=== PATIENT | male | born 1985 | race Caucasian/White ===

== ENCOUNTER 2019-10-22 01:30 | Observation (INO) ==
[2019-10-22] MEDS ORDERED: Ondansetron 4 MG/2 ML VIAL IVP ONE (01:33)
[2019-10-22] MEDS ORDERED: 0.9 % Sodium Chloride 1,000 ML IVC ONE ×2 (01:33→05:13)
[2019-10-22 02:06] LABS: Bilirubin,Urine Negative (Negative); Blood,Urine Negative (Negative); Clarity,Urine Cloudy (Clear); Color,Urine Yellow (Yellow); Glucose,Urine (UA) Normal (Normal); Ketones,Urine Negative (Negative); Leukocyte Esterase,Urine Negative (Negative); Nitrite,Urine Negative (Negative); Protein,Urine 30 mg/dL (Neg-Trace); Specific Gravity,Urine 1.018 (1.010-1.025); Urobilinogen,Urine Normal (Normal)
[2019-10-22 02:09] LABS: Bacteria,Urine None Seen per hpf (None-Few); Hyaline Casts,Urine Few per lpf (None-Few); Squamous Epithelial Cell,Urine Many per lpf (None-Few); WBC,Urine 0-3 per hpf (0-3)
[2019-10-22 02:11] LABS: Basophils # 0.1 K/mcL (0.0-0.2); Basophils % 0.4 %; Eosinophils # 0.2 K/mcL (0.0-0.6); Eosinophils % 1.1 %; Hematocrit 49.8 % (37.5-50.1); Hemoglobin 18.3 g/dL (12.9-16.9); Immature Granulocytes % 0.3 % (0-4); Lymphocytes # 0.8 K/mcL (0.6-4.6); Lymphocytes % 5.2 %; Mean Corpuscular HGB Conc 36.7 g/dL (31.6-35.5); Mean Corpuscular Hemoglobin 34.6 pg (28.0-33.3); Mean Corpuscular Volume 94.1 fL (83.0-100.0); Mean Platelet Volume 8.9 fL (9.4-12.4); Monocytes # 0.5 K/mcL (0.0-1.3); Monocytes % 3.1 %; Neutrophils # 13.2 K/mcL (1.6-8.9); Platelet Count 370 K/mcL (140-400); Red Blood Count 5.29 M/mcL (4.19-5.50); Red Cell Distribution Width 12.2 % (11.5-14.5); Segmented Neutrophils % 89.9 %; White Blood Count 14.7 K/mcL (4.3-11.1)
[2019-10-22 02:26] LABS: BUN/Creatinine Ratio 9 (6-26); Blood Urea Nitrogen 12 mg/dL (6-20); Calcium 10.4 mg/dL (8.6-10.3); Carbon Dioxide 16 mEq/L (23-29); Chloride 105 mEq/L (98-107); Glucose 95 mg/dL (70-105); Osmolality,Calculated 292 (280-300); Potassium 2.9 mEq/L (3.5-5.1); Sodium 141 mEq/L (136-145); eGFR For African Americans > 60 (> 60); eGFR For Non-African Americans 58 (> 60)
[2019-10-22] MEDS ORDERED: *HR* HYDROmorphone (PF) 1 MG/ML SYRINGE IVP ONE (03:50)
[2019-10-22] MEDS ORDERED: Promethazine 25 MG in 0.9 % Sodium Chloride 50 ML IVPB ONE (04:00)
[2019-10-22] MEDS ORDERED: 0.9 % Sodium Chloride 1,000 ML ONE (05:09)
[2019-10-22] MEDS ORDERED: Naloxone 0.4 MG/ML INJ IVP PRN (08:12)
[2019-10-22] MEDS ORDERED: Ondansetron 4 MG/2 ML VIAL IVP PRN (08:12)
[2019-10-22] MEDS ORDERED: Sodium Bicarbonate 50 MEQ in D5% in Water 1,000 ML IVC ONE (08:15)
[2019-10-22] MEDS ORDERED: Potassium Chloride 40 MEQ, Lidocaine 1% 2 ML in 0.9 % Sodium Chloride 500 ML IVPB ONE (08:19)
[2019-10-22 08:38] LABS: Alanine Aminotransferase 10 Units/L (7-52); Albumin 3.9 g/dL (3.5-5.7); Albumin/Globulin Ratio 1.8 (1.1-2.2); Alkaline Phosphatase 48 Units/L (34-104); Aspartate Amino Transferase 10 Units/L (13-39); Bilirubin,Direct 0.3 mg/dL (0.0-0.2); Bilirubin,Indirect 0.8 mg/dL (0.0-1.0); Bilirubin,Total 1.1 mg/dL (0.3-1.0); Globulin 2.2 g/dL (2.4-3.5); Salicylate < 2.5 mg/dL (15.0-30.0); Total Protein 6.1 g/dL (6.4-8.9)
[2019-10-22] MEDS: Ringers Solution, Lactated 1,000 ML IVC SCH ×2 (09:03→21:39)
[2019-10-22] MEDS ORDERED: Albuterol 2.5 MG/3 ML NEBULIZER IH PRN (09:59)
[2019-10-22 11:10] LABS: ABG Base Excess -1 mEq/L (-2 to 3); ABG HCO3 24 mEq/L (21-27); ABG Oxygen Saturation 97 % (95-98); ABG PCO2 39 mmHg (35-45); ABG PH 7.39 pH Units (7.32-7.45); ABG PO2 86 mmHg (85-104); ABG TCO2 25 mEq/L (20-26)
[2019-10-22] MEDS ORDERED: Ipratropium/Albuterol Neb 3 ML ONE (11:22)
[2019-10-22] MEDS: Ipratropium/Albuterol Neb 3 ML IH PRN ×2 (11:24→18:45)
[2019-10-22 11:38] LABS: BUN/Creatinine Ratio 10 (6-26); Blood Urea Nitrogen 13 mg/dL (6-20); Calcium 8.3 mg/dL (8.6-10.3); Carbon Dioxide 23 mEq/L (23-29); Chloride 108 mEq/L (98-107); Glucose 81 mg/dL (70-105); Osmolality,Calculated 289 (280-300); Potassium 3.9 mEq/L (3.5-5.1); Sodium 140 mEq/L (136-145); eGFR For African Americans > 60 (> 60); eGFR For Non-African Americans > 60 (> 60)
[2019-10-22 12:31] LABS: Adenovirus F 40/41 PCR Not detected (Not detect); Astrovirus PCR Not detected (Not detect); C.difficile Toxin A/B Gene PCR Not detected (Not detect); Campylobacter by PCR Not detected (Not detect); Cryptosporidium by PCR Not detected (Not detect); Cyclospora cayetanensis PCR Not detected (Not detect); E. coli O157 by PCR Not detected (Not detect); Entamoeba histolytica PCR Not detected (Not detect); Enteroaggregative E.coli(EAEC) Not detected (Not detect); Enteropathogenic E.coli(EPEC) Not detected (Not detect); Enterotoxigenic E.coli (ETEC) Not detected (Not detect); Giardia lamblia PCR Not detected (Not detect); Norovirus GI/GII PCR DETECTED (Not detect); Plesiomonas shigelloides PCR Not detected (Not detect); Rotavirus A PCR Not detected (Not detect); Salmonella PCR Not detected (Not detect); Sapovirus PCR Not detected (Not detect); Shig/EnteroinvasiveE coli EIEC Not detected (Not detect); Shigalike tox-prod E coli STEC Not detected (Not detect); Vibrio PCR Not detected (Not detect); Vibrio cholerae PCR Not detected (Not detect); Yersinia enterocolitica PCR Not detected (Not detect)
[2019-10-22 14:03] LABS: Adenovirus Not Detected (Not Detect); Bordetella Pertussis Not Detected (Not Detect); Chlamydophila pneumoniae Not Detected (Not Detect); Coronavirus 229E Not Detected (Not Detect); Coronavirus HKU1 Not Detected (Not Detect); Coronavirus NL63 Not Detected (Not Detect); Coronavirus OC43 Not Detected (Not Detect); Human Metapneumovirus Not Detected (Not Detect); Human Rhinovirus/Enterovirus Not Detected (Not Detect); Influenza A Subtype 2009 H1 Not Detected (Not Detect); Influenza A Untypeable Not Detected (Not Detect); Influenza B Not Detected (Not Detect); Mycoplasma pneumoniae Not Detected (Not Detect); Parainfluenza Virus 1 Not Detected (Not Detect); Parainfluenza Virus 2 Not Detected (Not Detect); Parainfluenza Virus 3 Not Detected (Not Detect); Parainfluenza Virus 4 Not Detected (Not Detect); Respiratory Syncytial Virus Not Detected (Not Detect)
[2019-10-22] MEDS ORDERED: Nicotine 21 MG PATCH.TD24 TD SCH (18:45)
[2019-10-23] MEDS: Ringers Solution, Lactated 1,000 ML IVC SCH (06:04)
[2019-10-23] MEDS: Ipratropium/Albuterol Neb 3 ML IH PRN (06:20)
[2019-10-23 06:25] LABS: Basophils % 0.7 %; Eosinophils # 0.4 K/mcL (0.0-0.6); Eosinophils % 8.3 %; Hematocrit 42.9 % (37.5-50.1); Hemoglobin 14.9 g/dL (12.9-16.9); Immature Granulocytes % 0.2 % (0-4); Lymphocytes # 1.1 K/mcL (0.6-4.6); Lymphocytes % 25.3 %; Mean Corpuscular HGB Conc 34.7 g/dL (31.6-35.5); Mean Corpuscular Hemoglobin 34.1 pg (28.0-33.3); Mean Corpuscular Volume 98.2 fL (83.0-100.0); Mean Platelet Volume 9.2 fL (9.4-12.4); Monocytes # 0.5 K/mcL (0.0-1.3); Monocytes % 12.1 %; Neutrophils # 2.2 K/mcL (1.6-8.9); Platelet Count 214 K/mcL (140-400); Red Blood Count 4.37 M/mcL (4.19-5.50); Red Cell Distribution Width 12.2 % (11.5-14.5); Segmented Neutrophils % 53.4 %; White Blood Count 4.2 K/mcL (4.3-11.1)
[2019-10-23 07:38] VITALS: BP 117/64
[2019-10-23] MEDS ORDERED: FLU Vac QV 19-20 (6Month+)/PF 0.5 ML SYRINGE IM ONE (09:08)
== END 2019-10-23 09:40 | disposition home or self-care (01) ==
LOC: EMEROOARM 01:30 → 2ANU 01:30
PROVIDERS: ADMIT Internal Medicine; ATTEND Internal Medicine

== ENCOUNTER 2020-02-28 08:24 | Observation (INO) ==
[2020-02-28] MEDS ORDERED: 0.9 % Sodium Chloride 1,000 ML IVC ONE (08:50)
[2020-02-28] MEDS ORDERED: Ketorolac 30 MG/ML VIAL IVP ONE (08:52)
[2020-02-28 10:04] LABS: Bilirubin,Urine Negative (Negative); Blood,Urine Negative (Negative); Clarity,Urine Clear (Clear); Color,Urine Yellow (Yellow); Glucose,Urine (UA) Normal (Normal); Ketones,Urine Negative (Negative); Leukocyte Esterase,Urine Negative (Negative); Nitrite,Urine Negative (Negative); Protein,Urine Negative (Neg-Trace); Specific Gravity,Urine 1.016 (1.010-1.025); Urobilinogen,Urine Normal (Normal)
[2020-02-28 10:07] LABS: Basophils # 0.1 K/mcL (0.0-0.2); Basophils % 1.2 %; Eosinophils # 0.3 K/mcL (0.0-0.6); Eosinophils % 2.9 %; Hematocrit 43.2 % (37.5-50.1); Hemoglobin 15.2 g/dL (12.9-16.9); Immature Granulocytes % 0.3 % (0-4); Lymphocytes # 2.4 K/mcL (0.6-4.6); Lymphocytes % 21.2 %; Mean Corpuscular HGB Conc 35.2 g/dL (31.6-35.5); Mean Corpuscular Hemoglobin 33.5 pg (28.0-33.3); Mean Corpuscular Volume 95.2 fL (83.0-100.0); Mean Platelet Volume 9.6 fL (9.4-12.4); Monocytes # 0.6 K/mcL (0.0-1.3); Monocytes % 5.7 %; Neutrophils # 7.7 K/mcL (1.6-8.9); Platelet Count 338 K/mcL (140-400); Red Blood Count 4.54 M/mcL (4.19-5.50); Red Cell Distribution Width 11.9 % (11.5-14.5); Segmented Neutrophils % 68.7 %; White Blood Count 11.2 K/mcL (4.3-11.1)
[2020-02-28 10:08] LABS: Amphetamine Screen,Urine Negative ng/mL (Cutoff=1000); Barbiturate Screen,Urine Negative ng/mL (Cutoff=200); Benzodiazepines Screen,Urine Negative ng/mL (Cutoff=200); Cannabinoid Screen,Urine Negative ng/mL (Cutoff = 50); Cocaine Screen,Urine Negative ng/mL (Cutoff= 300); Opiate Screen,Urine Negative ng/mL (Cutoff=300); Phencyclidine Screen,Urine Negative ng/mL (Cutoff=25)
[2020-02-28 10:13] LABS: Alanine Aminotransferase 10 Units/L (7-52); Albumin 4.1 g/dL (3.5-5.7); Albumin/Globulin Ratio 1.6 (1.1-2.2); Alkaline Phosphatase 68 Units/L (34-104); Aspartate Amino Transferase 11 Units/L (13-39); BUN/Creatinine Ratio 9 (6-26); Bilirubin,Total 0.7 mg/dL (0.3-1.0); Blood Urea Nitrogen 13 mg/dL (6-20); Calcium 9.2 mg/dL (8.6-10.3); Carbon Dioxide 18 mEq/L (23-29); Chloride 108 mEq/L (98-107); Globulin 2.6 g/dL (2.4-3.5); Glucose 133 mg/dL (70-105); Osmolality,Calculated 286 (280-300); Potassium 3.2 mEq/L (3.5-5.1); Sodium 137 mEq/L (136-145); Total Protein 6.7 g/dL (6.4-8.9); Troponin I < 0.03 ng/mL (< 0.04); eGFR For African Americans > 60 (> 60); eGFR For Non-African Americans 56 (> 60)
[2020-02-28 11:04] LABS: Magnesium 1.9 mg/dL (1.6-2.6)
[2020-02-28] MEDS ORDERED: Ondansetron 4 MG/2 ML VIAL IVP PRN (11:26)
[2020-02-28] MEDS ORDERED: Naloxone 0.4 MG/ML INJ IVP PRN (11:26)
[2020-02-28] MEDS ORDERED: Albuterol 2.5 MG/3 ML NEBULIZER IH PRN (11:29)
[2020-02-28 12:20] LABS: Ethanol < 10 mg/dL (Less than 10)
[2020-02-28] MEDS: Ringers Solution, Lactated 1,000 ML IVC SCH ×2 (12:30→22:06)
[2020-02-28 17:14] LABS: Thyroid Stimulating Hormone 6.781 mcIU/mL (0.340-5.600)
[2020-02-28] MEDS: *HR* Heparin 5,000 UNIT/ML VIAL SQ SCH (17:42)
[2020-02-28] MEDS: Topiramate 25 MG TABLET PO SCH ×2 (19:44→20:07)
[2020-02-29 02:15] LABS: Basophils # 0.1 K/mcL (0.0-0.2); Basophils % 1.7 %; Eosinophils # 0.4 K/mcL (0.0-0.6); Eosinophils % 7.1 %; Hemoglobin 14.2 g/dL (12.9-16.9); Immature Granulocytes % 0.4 % (0-4); Lymphocytes # 2.5 K/mcL (0.6-4.6); Lymphocytes % 45.5 %; Mean Corpuscular HGB Conc 34.6 g/dL (31.6-35.5); Mean Corpuscular Hemoglobin 33.3 pg (28.0-33.3); Mean Corpuscular Volume 96.2 fL (83.0-100.0); Mean Platelet Volume 9.4 fL (9.4-12.4); Monocytes # 0.4 K/mcL (0.0-1.3); Monocytes % 7.2 %; Neutrophils # 2.1 K/mcL (1.6-8.9); Platelet Count 291 K/mcL (140-400); Red Blood Count 4.26 M/mcL (4.19-5.50); Segmented Neutrophils % 38.1 %
[2020-02-29 02:17] LABS: Prothrombin Time 10.8 Seconds (9.4-12.1)
[2020-02-29 02:19] LABS: White Blood Count 5.4 K/mcL (4.3-11.1)
[2020-02-29 02:20] LABS: Activated Partial Thrombo Time 33.5 Seconds (26.0-36.0)
[2020-02-29 02:27] LABS: BUN/Creatinine Ratio 9 (6-26); Blood Urea Nitrogen 12 mg/dL (6-20); Calcium 8.8 mg/dL (8.6-10.3); Carbon Dioxide 19 mEq/L (23-29); Chloride 115 mEq/L (98-107); Glucose 89 mg/dL (70-105); Magnesium 2.1 mg/dL (1.6-2.6); Osmolality,Calculated 291 (280-300); Phosphorous 4.1 mg/dL (2.7-4.5); Potassium 3.9 mEq/L (3.5-5.1); Sodium 141 mEq/L (136-145); eGFR For African Americans > 60 (> 60); eGFR For Non-African Americans 59 (> 60)
[2020-02-29 04:38] LABS: ABG Base Excess -5 mEq/L (-2 to 3); ABG HCO3 19 mEq/L (21-27); ABG Oxygen Saturation 97 % (95-98); ABG PCO2 32 mmHg (35-45); ABG PH 7.38 pH Units (7.32-7.45); ABG PO2 88 mmHg (85-104); ABG TCO2 20 mEq/L (20-26)
[2020-02-29] MEDS: *HR* Heparin 5,000 UNIT/ML VIAL SQ SCH ×2 (06:28→18:00)
[2020-02-29] MEDS: Topiramate 25 MG TABLET PO SCH ×2 (08:21→20:19)
[2020-02-29 08:38] LABS: Estimated Average Glucose 108 mg/dl
[2020-02-29] MEDS ORDERED: Sodium Bicarbonate 75 MEQ in 0.45 % Sodium Chloride 1,000 ML IVC SCH (08:45)
[2020-02-29 10:46] LABS: Triiodothyronine (T3) Total 0.85 ng/mL (0.87-1.78)
[2020-02-29] MEDS: *HR* HYDROcodone/Acet 5/325 mg TABLET PO PRN ×2 (17:22→23:27)
[2020-03-01 01:17] LABS: BUN/Creatinine Ratio 9 (6-26); Blood Urea Nitrogen 14 mg/dL (6-20); Calcium 8.9 mg/dL (8.6-10.3); Carbon Dioxide 21 mEq/L (23-29); Chloride 115 mEq/L (98-107); Glucose 91 mg/dL (70-105); Magnesium 2.1 mg/dL (1.6-2.6); Osmolality,Calculated 298 (280-300); Phosphorous 4.3 mg/dL (2.7-4.5); Potassium 3.7 mEq/L (3.5-5.1); Sodium 144 mEq/L (136-145); eGFR For African Americans > 60 (> 60); eGFR For Non-African Americans 54 (> 60)
[2020-03-01] MEDS: *HR* Heparin 5,000 UNIT/ML VIAL SQ SCH (05:05)
[2020-03-01 07:03] VITALS: BP 127/84
[2020-03-01] MEDS: Topiramate 25 MG TABLET PO SCH (07:17)
[2020-03-01] MEDS ORDERED: Nicotine 2 MG GUM BC PRN (09:12)
== END 2020-03-01 10:57 | disposition home or self-care (01) ==
LOC: EMEROOARM 08:24 → 3BNU 08:24 → SUATTDRO 11:26 → 3BNU 12:00
PROVIDERS: ADMIT Internal Medicine; ATTEND Internal Medicine